=== PATIENT | female | born 1960 | race Caucasian/White ===

== ENCOUNTER 2023-08-25 14:32 | Emergency (ER) | payer MEDICARE, SELFPAY ==
[2023-08-25 14:33] VITALS: BP 163/76; PULSE 72; RESP 18; TEMP 36.8; O2SAT 97
[2023-08-25] MEDS: Clindamycin HCl 150 MG Capsule 300 MG PO (16:42)
--- NOTE | 2023-09-04 15:15 | EDS_ITS ---
HPI History of Present Illness Chief Complaint: Cellulitis Informant: patient Narrative Narrative: Patient presents with some redness of her left lower extremity for a few days. She has had cellulitis before. She used to be on Humira but states she is not taking that now. She does not have a history of diabetes. She has responded well to the oral antibiotics. She states she is kind of new to the area they are in a hotel and so they did not know who else to contact. She does not feel sick. No fevers chills nausea or vomiting. She does have some edema but is no different. PFSH PFSH Home Medications adalimumab 40 mg/0.8 mL subcutaneous syringe kit (Humira) 40 mg SQ QWEEK 05/03/15 [History Last Taken 04/29/15] atenolol 25 mg tablet 25 mg PO DAILY 05/03/15 [History Last Taken 05/03/15 10:00] hydrocodone 10 mg-acetaminophen 325 mg tablet (Lortab) 1 ea PO Q6H PRN PRN Pain 05/03/15 [History Last Taken 05/03/15 03:00] oxycodone 20 mg tablet,crush resistant,extended release 12 hr (OxyContin) 20 mg PO Q12H 05/03/15 [History Last Taken 05/03/15 16:00] prednisone 5 mg tablet 5 mg PO DAILY 05/03/15 [History Last Taken 05/03/15 10:00] pregabalin 75 mg capsule 75 mg PO DAILY 05/03/15 [History Last Taken 05/03/15 09:00] cefadroxil 1 gram tablet 1 g PO BID #20 tabs 05/06/15 [Rx Last Taken Unknown] clindamycin HCl 300 mg capsule (Cleocin HCl) 300 mg PO Q6H #56 CAPSULES 08/25/23 [Rx Last Taken Unknown] Allergy/AdvReac Type Severity Reaction Status Date / Time No Known Allergies Allergy Verified 08/25/23 14:33 Social History Smoking Status: Current every day smoker tobacco type: cigarettes ROS ROS ED Constitutional Constitutional ED: Denies chills, fever(s), subjective or sweats Cardiovascular Cardiovascular: Denies chest pain Respiratory/Chest Respiratory/Chest: Denies cough or dyspnea Gastrointestinal Gastrointestinal: Denies abdominal pain, nausea or vomiting Musculoskeletal Musculoskeletal: Denies myalgias Integumentary Reports rash Neurologic Neurologic: Denies paresthesias or weakness Hematologic/Lymphatic Hematologic/Lymphatic: Denies easy bleeding, easy bruising or lymphadenopathy EXAM Physical Exam Narrative Exam Narrative: General: Patient sitting in bed comfortable no acute distress. HEENT shows no sign of trauma mucous membranes are moist. Heart is regular. No murmur. Lungs are clear bilaterally. Saturations normal at 97% on room air showing no hypoxia. Abdomen is obese but benign. Extremities show bilateral edema. This is chronic. She has chronic stasis changes. But she does have some increased erythema to the left leg mostly in the anterior lateral aspect. It is slightly warm but not tender. But is not more swollen than the other. It is not weeping. No tenderness proximally or worse over specifically deep veins. MDM MDM MDM Narrative Medical decision making narrative: We discussed options with the patient. I explained we could do blood work. She does have a risk factor for poor recovery which is the edema. But she does not have diabetes. She is not having nausea vomiting fevers or chills. She has responded well to antibiotics before. But she states normally and she needs a longer dose. She has done well with clindamycin. I will write for a longer dose because she states every time she has to get a second prescription. She has limited access to medical care right now so I would like to help her. I stated that if she is doing good at 10 days and is resolved she can stop the antibiotics. We did discuss reasons to return. Discharge Plan Triage Chief Complaint: Cellulitis ED Provider: Elio Fitzgerald Dx/Rx/DC Orders Clinical Impression: Cellulitis of left lower extremity Instructions: ED Cellulitis Prescriptions: New clindamycin HCl [Cleocin HCl] 300 mg capsule 300 mg PO Q6H Qty: 56 0RF No Action prednisone 5 MG tablet 5 mg PO DAILY Patient Comments: steroid atenolol 25 MG tablet 25 mg PO DAILY Patient Comments: blood pressure hydrocodone-acetaminophen [Lortab 10-325] 1 EACH tablet 1 ea PO Q6H PRN PRN (Reason: Pain) Patient Comments: pain adalimumab [Humira] 40 MG/0.8 ML syringe kit 40 mg SQ QWEEK Patient Comments: arthritis pregabalin 75 MG capsule 75 mg PO DAILY Patient Comments: restless legs oxycodone [OxyContin] 20 MG tablet 20 mg PO Q12H Patient Comments: pain cefadroxil 1 GM tablet 1 g PO BID Qty: 20 0RF Patient Comments: antibiotic Primary Care Provider: Care Physician,No Primary Referrals: Shadia Pimentel MD [Med Staff - [facility] [employer] [facility] [employer]] - 3-5 Days Care Physician,No Primary [Primary Care Provider] - Disposition Disposition: Home, Self Care Discharge Date/Time: 08/25/23 16:46
== END 2023-08-25 16:46 | disposition home or self-care (01) ==
LOC: ED 16:46
PROVIDERS: Emergency Provider Emergency Medicine; Visit Provider Emergency Medicine
DX: L03.116 Cellulitis of left lower limb (principal); F17.210 Nicotine dependence, cigarettes, uncomplicated; R60.0 Localized edema
CPT/HCPCS: 99282